=== PATIENT | male | born 1950 | race Caucasian/White ===

== ENCOUNTER → 2017-01-21 | Outpatient (CLI) | payer OTHER | LOC: MW.CHUR 08:15 | PROVIDERS: ATTEND Urology | DX: C61 Malignant neoplasm of prostate (principal) | CPT/HCPCS: 36415; 84153 ==

== ENCOUNTER 2018-07-07 12:50 | Emergency (ER) | payer OTHER, MEDICARE ==
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
[2018-07-07 13:29] VITALS: BP 160/90
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
== END 2018-07-07 14:10 | disposition home or self-care (01) ==
LOC: MW.ED 12:50
DX: Z04.1 Encounter for examination and observation following transport accident (principal); V89.2XXA Person injured in unspecified motor-vehicle accident, traffic, initial encounter
CPT/HCPCS: 70450; 70450-26; 71046; 71046-26; 72125; 72125-26; 99283; 99284-25

== ENCOUNTER 2021-04-30 08:35 | Emergency (ER) | payer MEDICARE, OTHER ==
[2021-04-30] MEDS ORDERED: Famotidine 20 MG Tab PO ONE (09:10)
[2021-04-30] MEDS ORDERED: predniSONE 20 MG Tab PO ONE (09:10)
[2021-04-30] MEDS ORDERED: diphenhydrAMINE 50 MG/ML SDV IM ONE (09:10)
--- NOTE | 2021-04-30 09:15 | EDM.PDOC ---
ED HPI GENERAL MEDICAL PROBLEM - General Chief Complaint: Skin Complaint Stated Complaint: HIVES Time Seen by Provider: 04/30/21 09:00 - History of Present Illness INITIAL COMMENTS - FREE TEXT/NARRATIVE: HISTORY AND PHYSICAL: History of present illness: This is a 71-year-old gentleman with a history significant for prostate cancer who presents ER today with hives that started on diffusely throughout his body. Patient reports that he was started on abiraterone on Saturday the day prior to the symptoms starting. Patient denies any recent fevers, shakes, chills, nausea, vomiting, diarrhea, dysuria, frequency, urgency, chest pain, shortness of breath. Patient reports that the rash and itching initially started to his upper back and has progressed to his torso, hairline, and now he is feeling some tingling around his lips. His reports that she thinks his lips might be slightly more swollen than usual. Patient denies any change in his voice, difficulty breathing, hoarseness, or shortness of breath. Patient reports that he stopped his abiraterone after speaking to his doctor when the rash began and was started on Claritin but has not had any improvement after taking Claritin. Review of systems: As per history of present illness and below otherwise all systems reviewed and negative. Past medical history: As per history of present illness and as reviewed below otherwise noncontributory. Surgical history: As per history of present illness and as reviewed below otherwise noncontributory. Social history: No reported history of drug abuse. Family history: As per history of present illness and as reviewed below otherwise noncontributory. Physical exam: This patient was seen and evaluated during the 2019 SARS-CoV-2 novel coronavirus pandemic period. Community viral transmission is ongoing at time of this encounter and the emergency department is operating under pandemic response procedures. Constitutional: Patient is oriented to person, place, and time. Appears well-developed and well-nourished. No distress. HEENT: Moist mucous membranes Head: Normocephalic and atraumatic Eyes: Right eye exhibits no discharge. Left eye exhibits no discharge. No scleral icterus Neck: Normal range of motion. No tracheal deviation present. Cardiovascular: Normal rate and regular rhythm. Pulmonary: Effort normal, no respiratory distress. Abdominal: No distention Musculoskeletal: Normal range of motion Neurologic: Alert and oriented to person, place and time. Skin: [place], warm and dry. Psychiatric: Normal mood and affect. Behavior is normal. Judgment and thought content normal. Nursing note and vital signs have been reviewed Patient's ER physical exam is significant for diffuse hives to his upper back and chest and arm. Patient's oropharynx is clear without any evidence of uvular or tongue edema. Patient possibly has some mild swelling to his lower lip. Patient does not think it swollen but his reports that it might be slightly more swollen than usual. Diagnostics: [] Therapeutics: Benadryl 50 IM Prednisone 50 p.o. Pepcid 20 p.o. Assessment and plan: This is a 71-year-old gentleman with a history significant for prostate CA who was started on abiraterone on Saturday and developed a rash/hives on . Patient has been off the abiraterone since and has been taking Claritin without any significant improvement. Patient does not present with any signs or symptoms of be concerning for anaphylaxis or airway compromise. Patient be given Benadryl IM, prednisone 50 p.o. as well as Pepcid and will be reevaluated. Patient will likely need a 3 to 5-day course of the medications. Patient's been reevaluated by me. Patient reports that he feels slightly improved as far as his itching. Patient oropharynx and lips were reevaluated and there is no change from arrival. Patient be discharged home with prednisone, Benadryl, Pepcid to take for the next 3 to 5 days. Reassessment at the time of disposition demonstrates that the patient is in no acute distress. The patient has remained stable throughout the entire ED visit and is without objective evidence for acute process requiring urgent intervention or hospitalization. The patient is stable for discharge, counseling is provided as documented above, discussed symptomatic treatment and specific conditions for return. I have spoken with the patient/caregiver and discussed todays findings, in addition to providing specific details for the plan of care. Questions are answered and there is agreement with the plan. Definitive disposition and diagnosis as appropriate pending reevaluation and review of above. - Related Data Allergies Allergy/AdvReac Type Severity Reaction Status Date / Time abiraterone [From Zytiga] Allergy Rash Verified 04/30/21 08:52 Home Meds: Home Meds Loratadine [Claritin] 10 mg PO DAILY 03/29/14 [History] Pantoprazole Sodium [Protonix] 40 mg PO DAILY 03/29/14 [History] Metoprolol Succinate [Toprol XL 50mg] 0.5 tab PO DAILY 07/07/18 [History] Aspirin [Children's Aspirin] 81 mg PO DAILY 04/30/21 [History] Famotidine [Pepcid] 20 mg PO BID #10 tab 04/30/21 [Rx] Glucosamine/D3/Boswellia Bernadette [Osteo Bi-Flex Tablet] 1 each PO DAILY 04/30/21 [History] Pantoprazole Sodium [Protonix] 40 mg PO DAILY 04/30/21 [History] Selenomethionine [Selenium] 200 mcg PO DAILY 04/30/21 [History] diphenhydrAMINE [Benadryl] 50 mg PO Q6HR PRN #20 cap 04/30/21 [Rx] predniSONE [Prednisone] 5 mg PO DAILY 04/30/21 [History] predniSONE [Prednisone] 50 mg PO DAILY #5 tablet 04/30/21 [Rx] Past Medical History HEENT History: Reports: Cataract Genitourinary History: Reports: Prostate Disorder Musculoskeletal History: Reports: Back Pain, Chronic, Osteoarthritis Neurological History: Reports: Other (See Below) Other Neuro History: "slipped disc" Hematologic History: Reports: Anticoagulation Therapy Oncologic (Cancer) History: Reports: Prostate - Infectious Disease History Infectious Disease History: Reports: Chicken Pox, Measles, Novel Coronavirus Other Infectious Disease History: childhood. covid 09/2020 - Past Surgical History Cardiovascular Surgical History: Reports: Coronary Artery Stent Male Surgical History: Reports: Prostatectomy ED ROS GENERAL - Review of Systems Review Of Systems: See Below ED EXAM, SKIN/RASH Exam: See Below Course - Vital Signs Last Recorded V/S: Last Vital Signs Temp 97.0 F 04/30/21 08:58 Pulse 81 04/30/21 08:58 Resp 18 04/30/21 08:58 BP 130/89 04/30/21 08:58 Pulse Ox 97 04/30/21 08:58 - Orders/Labs/Meds Meds: Medications Discontinued Medications Generic Name Dose Route Start Last Admin Trade Name Freq PRN Reason Stop Dose Admin Diphenhydramine HCl 50 mg 04/30/21 09:10 04/30/21 09:46 Diphenhydramine 50 Mg/Ml Sdv IM 04/30/21 09:11 50 mg ONETIME ONE Administration Famotidine 20 mg 04/30/21 09:10 04/30/21 09:46 Famotidine 20 Mg Tab PO 04/30/21 09:11 20 mg ONETIME ONE Administration Prednisone 50 mg 04/30/21 09:10 04/30/21 09:46 Prednisone 20 Mg Tab PO 04/30/21 09:11 50 mg ONETIME ONE Administration Departure - Departure Time of Disposition: 10:48 Disposition: Home, Self-Care 01 Condition: Good Clinical Impression: Hives, Drug allergy - Discharge Information Prescriptions: diphenhydrAMINE [Benadryl] 50 mg PO Q6HR PRN #20 cap PRN Reason: Itching Famotidine [Pepcid] 20 mg PO BID #10 tab predniSONE [Prednisone] 50 mg PO DAILY #5 tablet Instructions: Hives, Drug Allergy Referrals: Jacinto Aranda MD [Primary Care Provider] - Forms: ED Department Discharge Additional Instructions: You were seen and evaluated in the ER today secondary to hives on your body and some swelling to your lip that most likely secondary to the abiraterone that you are taking. You were given a dose of prednisone, Benadryl, Pepcid here in the ED. You will be discharged to home with a prescription for prednisone to take daily as well as Benadryl 50 mg to take every 6 hours for the next 3 to 5 days as well as Pepcid 20 mg to take twice daily for the next 3 to 5 days as well. Please return to the ED if you start experiencing any swelling to your tongue or difficulty breathing. The following information is given to patients seen in the emergency department who are being discharged to home. This information is to outline your options for follow-up care. We provide all patients seen in our emergency department with a follow-up referral. The need for follow-up, as well as the timing and circumstances, are variable depending upon the specifics of your emergency department visit. If you don't have a primary care physician on staff, we will provide you with a referral. We always advise you to contact your personal physician following an emergency department visit to inform them of the circumstance of the visit and for follow-up with them and/or the need for any referrals to a consulting specialist. The emergency department will also refer you to a specialist when appropriate. This referral assures that you have the opportunity for follow-up care with a specialist. All of these measure are taken in an effort to provide you with optimal care, which includes your follow-up. Under all circumstances we always encourage you to contact your private physician who remains a resource for coordinating your care. When calling for follow-up care, please make the office aware that this follow-up is from your recent emergency room visit. If for any reason you are refused follow-up, please contact the [facility] Emergency Department at and asked to speak to the emergency department charge nurse. [facility] [address] [place] [id number] [facility] [address] [place] [id number] Sepsis Event Note (ED) - Evaluation Sepsis Screening Result: No Definite Risk - Focused Exam Vital Signs: Vital Signs Temp Pulse Resp BP Pulse Ox 04/30/21 08:58 97.0 F 81 18 130/89 97
[2021-04-30 11:13] VITALS: BP 130/84; PULSE 71
== END 2021-04-30 11:13 | disposition home or self-care (01) ==
LOC: MW.ED 08:35
DX: R21 Rash and other nonspecific skin eruption (principal); T50.995A Adverse effect of other drugs, medicaments and biological substances, initial encounter; Z88.8 Allergy status to other drugs, medicaments and biological substances; Z79.82 Long term (current) use of aspirin; Z95.5 Presence of coronary angioplasty implant and graft
CPT/HCPCS: 96372; 99282; A9270; J1200; 99283

== ENCOUNTER 2024-08-01 15:11 | Emergency (ER) | payer MEDICARE, OTHER ==
[2024-08-01 17:02] VITALS: BP 115/68; PULSE 65
== END 2024-08-01 16:50 | disposition home or self-care (01) ==
LOC: MW.ED 15:11
DX: L03.114 Cellulitis of left upper limb (principal); T63.461A Toxic effect of venom of wasps, accidental (unintentional), initial encounter; Z88.8 Allergy status to other drugs, medicaments and biological substances; Z79.82 Long term (current) use of aspirin; Z79.899 Other long term (current) drug therapy; Z95.5 Presence of coronary angioplasty implant and graft; Z75.8 Other problems related to medical facilities and other health care
CPT/HCPCS: 99282